=== PATIENT | female | born 1960 | race Caucasian/White ===

== ENCOUNTER 2020-05-11 09:35 | Emergency (ER) | payer MEDICAID, OTHER ==
--- NOTE | 2020-05-11 10:30 | EDM.PDOCBH ---
<Gita Coelho - Last Filed: 05/11/20 14:07> ED HPI GENERAL MEDICAL PROBLEM - General Chief Complaint: Behavioral/Psych Stated Complaint: EVAL Time Seen by Provider: 05/11/20 10:22 Source of Information: Reports: Patient History Limitations: Reports: Altered Mental Status - History of Present Illness INITIAL COMMENTS - FREE TEXT/NARRATIVE: pt has been at a cabin in [facility] because a friend of theres had covid 19. They have been at the cabin for 10 days. She and her have been there. The feels she has been anxious, She has been on antidepressants but did stop them several monthes ago. She feels like someone is trying to harm her and her family. She feels like her phone and commuter has been hacked. The plan was for her and her to return to [place] in the next couple of days. She does have a counselor in [place]. Last nite she states she ate supper and a glass of wine and she went to bed as usual. She states she got up about 2 thirty and she has been outside since that time. She was brought in by Law Enforcement as she was [place] [address] Her was not aware that she was out on the road. Onset: Other (pt has been out and walking since two thirty this am. ) Duration: Hour(s): Location: Reports: Upper Extremity, Left, Upper Extremity, Right, Other ( pt has cut both wrists deep enough to require stitches. ) Associated Symptoms: Reports: Other (pt is feeling very paranoid. 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: Psychiatric History: Reports: Anxiety, Depression - Past Surgical History GI Surgical History: Reports: Cholecystectomy Social & Family History - Tobacco Use Tobacco Use Status *Q: Never Tobacco User - Caffeine Use Caffeine Use: Reports: Coffee - Alcohol Use Days Per Week of Alcohol Use: 7 Number of Drinks Per Day: 2 Total Drinks Per Week: 14 - Recreational Drug Use Recreational Drug Use: No ED ROS GENERAL - Review of Systems Review Of Systems: See Below Constitutional: Reports: No Symptoms HEENT: Reports: No Symptoms Respiratory: Reports: No Symptoms, Other (pt had a neg covid test on Wednesday. ) Cardiovascular: Reports: No Symptoms Endocrine: Reports: No Symptoms GI/Abdominal: Reports: No Symptoms : Reports: No Symptoms Musculoskeletal: Reports: No Symptoms Skin: Reports: No Symptoms Neurological: Reports: No Symptoms Psychiatric: Reports: Agitation, Depression, Hallucinations, Suicidal Ideation ED EXAM, BEHAVIORAL HEALTH - Physical Exam Exam: See Below Text/Narrative:: pt arrived with a history of depression. She has been out wandering all nite since 2 thirty thinking someone was going to harm her. Exam Limited By: No Limitations General Appearance: Alert, Anxious, Other (pt seems very paranoid) Ears: Normal TMs Nose: Normal Inspection Throat/Mouth: Normal Inspection Head: Atraumatic Neck: Normal Inspection Respiratory/Chest: No Respiratory Distress Cardiovascular: Regular Rate, Rhythm GI/Abdominal: Soft, Non-Tender (Female) Exam: Deferred Rectal (Female) Exam: Deferred Back Exam: Normal Inspection Neurological: Alert, Other (pt states she is from [place] and her and her are here on [place] because there friend got Covid 19) Psychiatric: Alert, Tearful, Suicidal Plan, Suicidal Thoughts COURSE, BEHAVIORAL HEALTH COMP - Course Medical Clearance: 05/11/20 14:07 pt had laceration of both wrists on the russell aspect. These were cleansed well and investigated. She was fouind to have lacerated tendons bilaterally which I believe is the flexor longist but I am not sure. The wounds were closed loosely with 5-0 prolene. Pt will be looked at later in the week in terms as to w hether any repair is needed. If it is the Longist this does not need to be repaired. She does have normal flexion of all fingers including the thumb. Hand surgery at [facility] consulted and telt this could be seen the end of the week. pt will beplaced on antibiotics. 05/11/20 14:14 The [facility] team did see the pt and felt that inpatient placement was indicated. Departure - Departure Disposition: DC/Tfer to Psych Hosp/Unit [facility] Clinical Impression: Suicide attempt Laceration of wrist Qualifiers: Encounter type: initial encounter Laterality: right Qualified Code(s): S61.511A - Laceration without foreign body of right wrist, initial encounter - Discharge Information Instructions: Laceration Care, Adult Referrals: PCP,None [Primary Care Provider] - Forms: ED Department Discharge Additional Instructions: Clean wounds twice a day with soap and water. Dry. Apply antibiotic ointment and a new dressing. Dr. Coelho advises that these wounds need to be looked at by mid week by orthopedics or a hand surgeon. Acetaminophen or ibuprofen as needed for pain relief. Sepsis Event Note (ED) - Evaluation Sepsis Screening Result: No Definite Risk <Keshav Parks - Last Filed: 05/11/20 21:23> COURSE, BEHAVIORAL HEALTH COMP - Course Vital Signs: Last Vital Signs Temp 37.2 C 05/11/20 09:46 Pulse 86 05/11/20 09:46 Resp 14 05/11/20 09:46 BP 170/84 H 05/11/20 09:46 Pulse Ox 94 L 05/11/20 09:46 Orders, Labs, Meds: Laboratory Tests 05/11/20 05/11/20 05/11/20 Range/Units 10:20 10:20 10:38 WBC 11.0 (4.5-11.0) K/uL RBC 4.99 (3.30-5.50) M/uL Hgb 14.8 (12.0-15.0) g/dL Hct 43.5 (36.0-48.0) % MCV 87 (80-98) fL MCH 30 (27-31) pg MCHC 34 (32-36) % Plt Count 381 (150-400) K/uL Neut % (Auto) 83 H (36-66) % Lymph % (Auto) 11 L (24-44) % [place] % (Auto) 6 (2-6) % Eos % (Auto) 0 L (2-4) % Baso % (Auto) 0 (0-1) % Sodium (140-148) mmol/L Potassium (3.6-5.2) mmol/L Chloride (100-108) mmol/L Carbon Dioxide (21-32) mmol/L Anion Gap (5.0-14.0) mmol/L BUN (7-18) mg/dL Creatinine (0.6-1.0) mg/dL Est Cr Clr Drug Dosing mL/min Estimated GFR (MDRD) (>60) Glucose (74-106) mg/dL Calcium (8.5-10.1) mg/dL Total Bilirubin (0.2-1.0) mg/dL AST (15-37) U/L ALT (12-78) U/L Alkaline Phosphatase (46-116) U/L Total Protein (6.4-8.2) g/dL Albumin (3.4-5.0) g/dL Globulin (2.3-3.5) g/dL Albumin/Globulin Ratio (1.2-2.2) Urine Color Yellow (YELLOW) Urine Appearance Slightly cloudy A (CLEAR) Urine pH 5.5 (5.0-8.0) Ur Specific [place] >= 1.030 (1.008-1.030) Urine Protein Negative (NEGATIVE) mg/dL Urine Glucose (UA) Negative (NEGATIVE) mg/dL Urine Ketones 40 H (NEGATIVE) mg/dL Urine Occult Blood Trace-intact H (NEGATIVE) Urine Nitrite Negative (NEGATIVE) Urine Bilirubin Small H (NEGATIVE) Urine Urobilinogen 0.2 (0.2-1.0) EU/dL Ur Leukocyte Esterase Trace H (NEGATIVE) Urine RBC Not seen (0-5) Urine WBC 0-5 (0-5) Ur Epithelial Cells Moderate Amorphous Sediment Many Urine Bacteria Few Urine Mucus Many Urine Other See note Urine Opiates Screen Negative (NEGATIVE) Ur Oxycodone Screen Negative (NEGATIVE) Urine Methadone Screen Negative (NEGATIVE) Ur Propoxyphene Screen Negative (NEGATIVE) Ur Barbiturates Screen Negative (NEGATIVE) Ur Tricyclics Screen Negative (NEGATIVE) Ur Phencyclidine Scrn Negative (NEGATIVE) Ur Amphetamine Screen Negative (NEGATIVE) U Methamphetamines Scrn Negative (NEGATIVE) Urine MDMA Screen Negative (NEGATIVE) U Benzodiazepines Scrn Negative (NEGATIVE) U Cocaine Metab Screen Negative (NEGATIVE) U Marijuana (THC) Screen Negative (NEGATIVE) Ethyl Alcohol mg/dL 05/11/20 05/11/20 Range/Units 10:38 10:38 WBC (4.5-11.0) K/uL RBC (3.30-5.50) M/uL Hgb (12.0-15.0) g/dL Hct (36.0-48.0) % MCV (80-98) fL MCH (27-31) pg MCHC (32-36) % Plt Count (150-400) K/uL Neut % (Auto) (36-66) % Lymph % (Auto) (24-44) % [place] % (Auto) (2-6) % Eos % (Auto) (2-4) % Baso % (Auto) (0-1) % Sodium 137 L (140-148) mmol/L Potassium 4.1 (3.6-5.2) mmol/L Chloride 102 (100-108) mmol/L Carbon Dioxide 25 (21-32) mmol/L Anion Gap 14.1 H (5.0-14.0) mmol/L BUN 19 H (7-18) mg/dL Creatinine 0.8 (0.6-1.0) mg/dL Est Cr Clr Drug Dosing 67.77 mL/min Estimated GFR (MDRD) > 60 (>60) Glucose 104 (74-106) mg/dL Calcium 9.0 (8.5-10.1) mg/dL Total Bilirubin 0.7 (0.2-1.0) mg/dL AST 14 L (15-37) U/L ALT 22 (12-78) U/L Alkaline Phosphatase 68 (46-116) U/L Total Protein 7.6 (6.4-8.2) g/dL Albumin 4.2 (3.4-5.0) g/dL Globulin 3.4 (2.3-3.5) g/dL Albumin/Globulin Ratio 1.2 (1.2-2.2) Urine Color (YELLOW) Urine Appearance (CLEAR) Urine pH (5.0-8.0) Ur Specific [place] (1.008-1.030) Urine Protein (NEGATIVE) mg/dL Urine Glucose (UA) (NEGATIVE) mg/dL Urine Ketones (NEGATIVE) mg/dL Urine Occult Blood (NEGATIVE) Urine Nitrite (NEGATIVE) Urine Bilirubin (NEGATIVE) Urine Urobilinogen (0.2-1.0) EU/dL Ur Leukocyte Esterase (NEGATIVE) Urine RBC (0-5) Urine WBC (0-5) Ur Epithelial Cells Amorphous Sediment Urine Bacteria Urine Mucus Urine Other Urine Opiates Screen (NEGATIVE) Ur Oxycodone Screen (NEGATIVE) Urine Methadone Screen (NEGATIVE) Ur Propoxyphene Screen (NEGATIVE) Ur Barbiturates Screen (NEGATIVE) Ur Tricyclics Screen (NEGATIVE) Ur Phencyclidine Scrn (NEGATIVE) Ur Amphetamine Screen (NEGATIVE) U Methamphetamines Scrn (NEGATIVE) Urine MDMA Screen (NEGATIVE) U Benzodiazepines Scrn (NEGATIVE) U Cocaine Metab Screen (NEGATIVE) U Marijuana (THC) Screen (NEGATIVE) Ethyl Alcohol 3 mg/dL Medications Discontinued Medications Generic Name Dose Route Start Last Admin Trade Name Freq PRN Reason Stop Dose Admin Aripiprazole 5 mg 05/11/20 15:09 05/11/20 16:16 Abilify PO 05/11/20 15:10 5 mg ONETIME ONE Administration Bacitracin 1 dose 05/11/20 10:34 05/11/20 10:40 Bacitracin Oint 1 Gm TOP 05/11/20 10:35 1 dose ONETIME ONE Administration Cephalexin 1,000 mg 05/11/20 14:13 05/11/20 16:15 Keflex PO 05/11/20 14:14 1,000 mg ONETIME ONE Administration Lidocaine HCl 20 ml 05/11/20 10:34 05/11/20 10:40 Xylocaine 1% INJECT 05/11/20 10:35 20 ml ONETIME ONE Administration Lorazepam 0.5 mg 05/11/20 15:08 05/11/20 16:15 Ativan PO 05/11/20 15:09 0.5 mg ONETIME ONE Administration Topiramate 25 mg 05/11/20 15:09 05/11/20 16:18 Topamax PO 05/11/20 15:10 25 mg BID ONE Administration Re-Assessment/Re-Exam: accepted by Dr. Carpenter @ [facility] @ 193 Departure - Departure Time of Disposition: 22:05 Condition: Fair - Discharge Information *PRESCRIPTION DRUG MONITORING PROGRAM REVIEWED*: No *COPY OF PRESCRIPTION DRUG MONITORING REPORT IN PATIENT ABHISHEK: No Sepsis Event Note (ED) - Focused Exam Vital Signs: Vital Signs Temp Pulse Resp BP Pulse Ox 05/11/20 09:46 37.2 C 86 14 170/84 H 94 L
[2020-05-11] MEDS ORDERED: Bacitracin Oint 1 GM U/D Packet TOP ONE (10:34)
[2020-05-11] MEDS ORDERED: Lidocaine 1% 20 ML MDV INJECT ONE (10:34)
[2020-05-11] MEDS ORDERED: Cephalexin 250 MG Cap PO ONE (14:13)
[2020-05-11] MEDS ORDERED: LORazepam 0.5 MG Tab PO ONE (15:08)
[2020-05-11] MEDS ORDERED: ARIPiprazole 10 MG Tab PO ONE (15:09)
[2020-05-11] MEDS ORDERED: Topiramate 25 MG Tab PO ONE (15:09)
== END 2020-05-11 22:09 ==
LOC: JP.ED 09:35
DX: S61.511A Laceration without foreign body of right wrist, initial encounter (principal); S61.512A Laceration without foreign body of left wrist, initial encounter; F32.9 Major depressive disorder, single episode, unspecified; F41.9 Anxiety disorder, unspecified; X78.9XXA Intentional self-harm by unspecified sharp object, initial encounter; Z20.828 Contact with and (suspected) exposure to other viral communicable diseases
CPT/HCPCS: 12004; 36415; 80053; 80305; 80307; 81001; 85025; 99285; A9270; J2001